=== PATIENT | male | born 1980 | race Two or more races ===

== ENCOUNTER → 2018-08-09 | Outpatient (CLI) | payer OTHER ==
[~2018-08-09] MED LIST: IOHEXOL 300 MG/ML 100ML BOTTLE IJ ONE
[2018-08-09 11:33] LABS: BUN/Creatinine Ratio 11.8; Calcium 9.1 mg/dL (8.5-10.1); Potassium 4.1 mmol/L (3.5-5.1)
== END | disposition home or self-care (01) ==
LOC: CT 10:29
DX: R91.1 Solitary pulmonary nodule (principal); J98.4 Other disorders of lung
CPT/HCPCS: 36415; 71275; 80048; Q9967

== ENCOUNTER 2020-09-02 07:50 | Day surgery (SDC) | payer OTHER ==
[2020-09-02 09:17] LABS: Basophils # (auto) 0 10 ^3/uL (0-0.2); Hemoglobin 10.3 g/dL (13.5-17.5); Monocytes # (auto) 0.6 10 ^3/uL (0-1.3); Neutrophils # (auto) 4.1 10 ^3/uL (1.6-8.6); Nucleated Red Blood Cells % 0.1 %; White Blood Cell 6.1 10^3/uL (4.4-10.8)
[2020-09-02 09:23] LABS: Basophils % (auto) 0.7 % (0.0-2.0); Eosinophils # (auto) 0.2 10 ^3/uL (0-0.8); Eosinophils % (auto) 2.7 % (0.0-7.0); Lymphocytes # (auto) 1.2 10 ^3/uL (0.4-5.4); Lymphocytes % (auto) 19.6 % (10.0-50.0); Mean Corpuscular Hemoglobin 21.2 pg (28.0-32.0); Mean Corpuscular Hgb Conc. 31.4 g/dL (32.0-36.0); Mean Corpuscular Volume 67.7 fL (80.0-100.0); Monocytes % (auto) 10.3 % (0.0-12.0); Neutrophils % (auto) 66.7 % (37.0-80.0); Red Blood Cells 4.87 10^6/uL (4.5-5.90); Red Cell Distribution Width 16.2 % (11.8-14.3)
[2020-09-02 09:31] LABS: INR 1.06 (0.9-1.15)
[2020-09-02 09:39] LABS: Albumin 3.3 g/dL (3.4-5.0); Calcium 8.8 mg/dL (8.5-10.1)
[2020-09-02 09:42] LABS: Bilirubin, Total 0.5 mg/dL (0.2-1.0); Total Protein 7.9 g/dL (6.4-8.2)
[2020-09-02] MEDS: diphenhdrAMINE HCL 50 MG/1 ML VL ONE ×2 (13:19→13:22)
[2020-09-02] MEDS: MIDAZOLAM HCL 5 MG/ML-1ML VIAL ONE ×2 (13:19→13:22)
[2020-09-02] MEDS: fentaNYL CITRATE 100 MCG/2 ML VL ONE ×2 (13:19→13:22)
[2020-09-02 14:10] VITALS: BP 138/74
== END 2020-09-02 14:20 | disposition home or self-care (01) ==
LOC: GI 07:50
PROVIDERS: ATTEND Internal Medicine Gastroenterology
DX: K62.5 Hemorrhage of anus and rectum (principal); D12.8 Benign neoplasm of rectum; K64.8 Other hemorrhoids; Z98.890 Other specified postprocedural states; Z79.899 Other long term (current) drug therapy
CPT/HCPCS: 36415; 45380; 80053; 85025; 85610; 88305; J1200; J2250; J3010; J7030; 99152